=== PATIENT | male | born 1950 | race Caucasian/White ===

== ENCOUNTER 2017-03-31 09:08 | Emergency (ER) | payer MEDICARE, OTHER ==
[~2017-03-31] VITALS: Ht 177.8 cm; Wt 99.8 kg
[2017-03-31 09:29] LABS: BASOPHILS # (AUTO) 0.1 10^3/uL (0.0-0.1); BASOPHILS % (AUTO) 1 % (0-10); EOSINOPHILS # (AUTO) 0.2 10^3/uL (0.0-0.3); EOSINOPHILS % (AUTO) 3 % (0-10); LYMPHOCYTES # (AUTO) 2.5 X 10^3 (1.0-4.0); LYMPHOCYTES % (AUTO) 34 % (12-44); MEAN CORPUSCULAR HEMOGLOBIN 30 PG (25-34); MEAN CORPUSCULAR HGB CONC 34 G/DL (32-36); MEAN CORPUSCULAR VOLUME 87 FL (80-99); MEAN PLATELET VOLUME 9.9 FL (7.4-10.4); MONOCYTES # (AUTO) 0.9 X 10^3 (0.0-1.0); MONOCYTES % (AUTO) 12 % (0-12); NEUTROPHILS # (AUTO) 3.8 X 10^3 (1.8-7.8); NEUTROPHILS % (AUTO) 51 % (42-75); PLATELET COUNT 176 10^3/uL (130-400); RED BLOOD COUNT 5.37 10^6/uL (4.35-5.85); RED CELL DISTRIBUTION WIDTH 14.9 % (10.0-14.5); WHITE BLOOD COUNT 7.5 10^3/uL (4.3-11.0)
[2017-03-31 09:48] LABS: ALANINE AMINOTRANSFERASE 33 U/L (0-55); ALBUMIN 4.4 G/DL (3.2-4.5); ANION GAP 12 MMOL/L (5-14); ASPARTATE AMINO TRANSFERASE 47 U/L (5-34); BLOOD UREA NITROGEN 15 MG/DL (7-18); BUN/CREATININE RATIO 17; CALCIUM 9.2 MG/DL (8.5-10.1); CARBON DIOXIDE 22 MMOL/L (21-32); CHLORIDE 107 MMOL/L (98-107); CREATININE SERUM 0.86 MG/DL (0.60-1.30); GFR ESTIMATED > 60; GLUCOSE 150 MG/DL (70-105); POTASSIUM 4.3 MMOL/L (3.6-5.0); SODIUM 141 MMOL/L (135-145); TOTAL PROTEIN 7.3 G/DL (6.4-8.2)
[2017-03-31 09:53] LABS: TROPONIN I < 0.30 NG/ML (<0.30)
--- NOTE | 2017-03-31 09:57 | Diagnostic Imaging Report ---
EXAMINATION: Portable chest INDICATION: Chest discomfort. FINDINGS: No focal pulmonary infiltrates are evident. There is no effusion or evidence of pneumothorax. Patient status post sternotomy and bypass grafting. There is enlargement of the cardiac silhouette but no findings to suggest overt failure IMPRESSION: 1. Previous coronary artery bypass grafting. No evidence of failure demonstrated. There are no focal pulmonary infiltrates or evidence of a pleural effusion. Dictated by: Dictated on workstation # [id number]
--- NOTE | 2017-03-31 10:24 | ED Cardiac General ---
History of Present Illness General Chief Complaint: Chest Pain Stated Complaint: SWEATY, DISCOMFORT ACROSS ABD/CHEST Nursing Triage Note: PT C/O CP, NAUSEA, AND DIAPHORESIS AFTER EATING BREAKFAST THIS AM. Source: patient Exam Limitations: no limitations History of Present Illness Time seen by provider: 10:20 Initial Comments The patient is a 66-year-old white male. He and a friend were on their way from [place] to [place] to play golf. They had had breakfast in [place] and continued on their way he then began to have discomfort across his upper abdomen and broke into an intense cold sweat. He has had multiple previous cardiac interventions first with stents several years ago and then in August a multivessel coronary artery bypass procedure. After arrival he also thought about the previous episode in which she was diagnosed as having a kidney stone. He describes typical signs at that time but was never aware that he passed a stone. There is been no follow-up on that issue. During the CT scan for the kidney stone he was noted to have an abdominal aortic aneurysm but does not know the diameter. He also cannot state whether subsequent follow-up at cardiology visits have continued to follow the size of this aneurysm. The diaphoresis has subsided. He has much less pain. He was understandably anxious about this given his previous heart history. Timing/Duration: 1-3 hours Location: epigastric, abdomen Activities at Onset: none Prior CP/Workup: cardiac cath, echocardiography, heart attack, other (stents and bypass surgery) NTG SL CORE LOADER: No ASA po CORE LOADER: No Associated Systoms: Denies Symptoms Review of Systems Constitutional: see HPI, diaphoresis EENTM: No Symptoms Reported Respiratory: No Symptoms Reported Cardiovascular: See HPI, Chest Pain, Other (past history of coronary artery disease) Gastrointestinal: No Symptoms Reported, Abdominal Pain Genitourinary: See HPI Musculoskeletal: no symptoms reported Skin: no symptoms reported Psychiatric/Neurological: No Symptoms Reported Past Qkycpdc-Kjxzbt-Rjykct Hx Patient Social History Alcohol Use: Occasionally Uses Recreational Drug Use: No Smoking Status: Never a Smoker 2nd Hand Smoke Exposure: No Recent Foreign Travel: No Contact w/Someone Who Travel: No Recent Infectious Disease Expo: No Physical Exam Vital Signs Vital Sign - Last 12Hours 03/31/17 09:15 Temp 96.2 Pulse 69 Resp 12 B/P (MAP) 130/88 Pulse Ox 95 O2 Delivery Room Air Capillary Refill : Less Than 3 Seconds General Appearance: Mild Distress HEENT: Normal ENT Inspection Neck: Normal Inspection Respiratory: Chest Non Tender, Lungs Clear, Normal Breath Sounds, No Accessory Muscle Use, No Respiratory Distress Cardiovascular: Regular Rate, Rhythm, No Edema, No Gallop, No JVD, No Murmur, Normal Peripheral Pulses Gastrointestinal: Normal Bowel Sounds, No Organomegaly, No Pulsatile Mass, Non Tender Extremity: Normal Capillary Refill, Normal Inspection, Normal Range of Motion, Non Tender, No Calf Tenderness, No Pedal Edema Neurologic/Psychiatric: Alert, Oriented x3, No Motor/Sensory Deficits, Normal Mood/Affect Skin: Normal Color, Warm/Dry Lymphatic: No Adenopathy Progress/Results/Core Measures Results/Orders Lab Results Laboratory Tests Test 03/31/17 09:20 Range/Units White Blood Count 7.5 4.3-11.0 10^3/uL Red Blood Count 5.37 4.35-5.85 10^6/uL Hemoglobin 16.0 13.3-17.7 G/DL Hematocrit 47 40-54 % Mean Corpuscular Volume 87 80-99 FL Mean Corpuscular Hemoglobin 30 25-34 PG Mean Corpuscular Hemoglobin Concent 34 32-36 G/DL Red Cell Distribution Width 14.9 H 10.0-14.5 % Platelet Count 176 130-400 10^3/uL Mean Platelet Volume 9.9 7.4-10.4 FL Neutrophils (%) (Auto) 51 42-75 % Lymphocytes (%) (Auto) 34 12-44 % Monocytes (%) (Auto) 12 0-12 % Eosinophils (%) (Auto) 3 0-10 % Basophils (%) (Auto) 1 0-10 % Neutrophils # (Auto) 3.8 1.8-7.8 X 10^3 Lymphocytes # (Auto) 2.5 1.0-4.0 X 10^3 Monocytes # (Auto) 0.9 0.0-1.0 X 10^3 Eosinophils # (Auto) 0.2 0.0-0.3 10^3/uL Basophils # (Auto) 0.1 0.0-0.1 10^3/uL Sodium Level 141 135-145 MMOL/L Potassium Level 4.3 3.6-5.0 MMOL/L Chloride Level 107 98-107 MMOL/L Carbon Dioxide Level 22 21-32 MMOL/L Anion Gap 12 5-14 MMOL/L Blood Urea Nitrogen 15 7-18 MG/DL Creatinine 0.86 0.60-1.30 MG/DL Estimat Glomerular Filtration Rate > 60 BUN/Creatinine Ratio 17 Glucose Level 150 H 70-105 MG/DL Calcium Level 9.2 8.5-10.1 MG/DL Total Bilirubin 1.0 0.1-1.0 MG/DL Aspartate Amino Transf (AST/SGOT) 47 H 5-34 U/L Alanine Aminotransferase (ALT/SGPT) 33 0-55 U/L Alkaline Phosphatase 86 40-136 U/L Troponin I < 0.30 <0.30 NG/ML Total Protein 7.3 6.4-8.2 G/DL Albumin 4.4 3.2-4.5 G/DL My Orders Orders - JACKSON CARRASQUILLO MD Cbc With Automated Diff (03/31/17 09:16) Comprehensive Metabolic Panel (03/31/17 09:16) Troponin I (03/31/17 09:16) Ekg Tracing (03/31/17 09:16) Chest 1 View, Ap/Pa Only (03/31/17 09:16) Ua Culture If Indicated (03/31/17 10:18) Ct Abdomen/Pelvis Wo (03/31/17 10:25) Vital Signs/I&O Vital Sign - Last 12Hours 03/31/17 03/31/17 09:15 09:15 Temp 96.2 Pulse 69 Resp 12 B/P (MAP) 130/88 Pulse Ox 95 O2 Delivery Room Air Room Air Blood Pressure Mean: 102 Departure Communication Progress Notes CT scan confirms a distal aortic aneurysm. No other abdominal or pelvic pathology is noted. Impression Impression: Primary Impression: abdominal pain Disposition: 01 HOME, SELF-CARE Condition: Improved Departure-Patient Inst. Decision time for Depature: 11:20 Patient Instructions: Angina (DC) Add. Discharge Instructions: All discharge instructions reviewed with patient and/or family. Voiced understanding. If the pain recurs use a nitroglycerin and sit or lie down. It would be probably in your better interest not to play golf today. JACKSON CARRASQUILLO MD Mar 31, 2017 10:24
--- NOTE | 2017-03-31 10:54 | Diagnostic Imaging Report ---
PROCEDURE: CT abdomen and pelvis without contrast. TECHNIQUE: Multiple contiguous axial images were obtained through the abdomen and pelvis without the use of intravenous contrast. INDICATION: Nausea and diaphoresis. FINDINGS: The lung bases demonstrate minimal dependent atelectasis. The patient is status post previous sternotomy. There is no pleural or pericardial effusion. Noncontrast CT appearance of the liver is unremarkable. Gallbladder is mildly prominent without biliary dilatation or radiodense gallstone. The spleen demonstrates a dystrophic calcification along its capsule but is otherwise unremarkable. The pancreas is atrophic without focal abnormality. There is no adrenal mass. The kidneys are nonobstructed. No renal stone evident. There is no hydronephrosis. The ureters are normal in caliber. The small and large bowel appear normal in caliber without obstruction. Diverticulosis is present without findings to suggest diverticulitis. There is moderate stool within the colon. The appendix is not evident but there are no secondary signs of an appendicitis. Urinary bladder nondistended. The prostate is enlarged. No pathologically enlarged abdominal or pelvic lymph nodes present. There are calcifications within the abdominal aorta. There is aneurysmal dilation of the distal abdominal aorta measuring up to 3.2 x 2.7 cm. There is also ectasia of the right common iliac artery. There are multilevel degenerative changes present within the spine. No acute or suspicious osseous abnormality. 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 IMPRESSION: 1. No CT evidence of an acute inflammatory or obstructive process within the abdomen or pelvis. 2. No evidence of urolithiasis. 3. Moderate stool within the colon without evidence of obstruction. Uncomplicated diverticulosis is present. 4. Prostatic Enlargement. 5. Atherosclerosis with a 2.7 x 3.2 cm nonruptured distal abdominal aortic aneurysm. Dictated by: Dictated on workstation # [id number]
[2017-03-31 11:25] VITALS: BP 124/76
== END 2017-03-31 11:25 | disposition home or self-care (01) ==
LOC: ER 09:10
DX: R10.13 Epigastric pain (principal); Z87.442 Personal history of urinary calculi; Z86.79 Personal history of other diseases of the circulatory system
CPT/HCPCS: 36415; 71010; 74176; 80053; 84484; 85025; 93005